=== PATIENT | female | born 1950 | race Hispanic/Latino ===

== ENCOUNTER → 2024-10-02 | Outpatient (CLI) | payer OTHER ==
[~2024-10-02] MED LIST: GADOTERATE MEGLUMINE 10 MMOL/20 ML VIAL IV ONE
--- NOTE | 2024-10-02 11:19 | HMCIMG ---
Exam Type: MR BRAIN WWO CON Clinical Information: R25.1 Tremor, unspecified Comparison: None Technique: T1 weighed sagittal, T1-weighted axial, T2-weighted axial, diffusion, apparent diffusion, exponential diffusion weighted axial, T2-weighted FLAIR sagittal, coronal and axial images of the brain. Findings: Examination done after the administration of Clariscan, 15 cc IV, no complications. CSF spaces are preserved. Ventricular spaces are preserved as well. Multiple punctate and patchy foci of increased signal T2-weighted FLAIR images scattered diffusely throughout the deep white matter centrum semiovale and coronal radiata on the T2-weighted FLAIR images, consistent with chronic small vessel ischemic changes. No similar-appearing focus present within the deep white matter of the cerebellum or brainstem. No acute intra-or extra-axial fluid collections are seen. There is no mass effect or shift of midline structures. Diffusion-weighted sequences demonstrate no evidence of acute pathology. Specifically, there is no evidence of acute TIA or stroke. The pituitary gland is unremarkable. The stalk is midline and the sella turcica shows no significant abnormalities. The signal intensity of the skull base and the marrow of the actual bony structures of the skull are unremarkable. The acoustic canals show no significant abnormalities. The orbits and the eye globes are preserved. The paranasal sinuses are clear. After contrast administration, there is no abnormal enhancement. IMPRESSION: 1. CHRONIC SMALL VESSEL ISCHEMIC CHANGES. NO ACUTE INFARCTS OR ISCHEMIC EVENTS NOTED AT THIS TIME.
== END | disposition home or self-care (01) ==
LOC: RAH 08:42
PROVIDERS: ATTEND Family Medicine
DX: I67.82 Cerebral ischemia (principal); R25.1 Tremor, unspecified
CPT/HCPCS: 70553; A9575